=== PATIENT | male | born 1965 | race Caucasian/White ===

== ENCOUNTER 2017-11-25 10:40 | Emergency (ER) | payer SELFPAY ==
[~2017-11-25] VITALS: Ht 190.5 cm; Wt 86.2 kg
--- NOTE | 2017-11-25 12:09 | ED GENERAL ADULT ---
History of Present Illness General Chief Complaint: General Adult Stated Complaint: "VERTIGO? VOMITING, DIZZINESS X12HRS Source: patient, family Exam Limitations: no limitations Vital Signs & Intake/Output Vital Signs & Intake/Output Vital Signs Date Time Temp Pulse Resp B/P B/P Pulse O2 O2 Flow FiO2 Mean Ox Delivery Rate 11/25 1458 98.1 55 18 149/73 98 Room Air 11/25 1101 96.8 65 18 128/78 97 Room Air Allergies Coded Allergies: No Known Allergies (11/25/17) Triage Note: PT TO THE ER C/O NAUSEA AND DIZZYNESS. PT STATES THAT WHEN HE OPENS HIS EYE IS MAKES HIM SICKER. PT STATES THAT ONSET WAS YESTERDAY. PT STATES THAT ALL MORNING HE HAD DRY HEAVES. Triage Nurses Notes Reviewed? yes HPI: This is a 52-year-old male with history of minimal medical contacts but no known medical history, no toxic habits,, presenting to the emergency department with dizziness, vertigo, nausea and vomiting since yesterday afternoon. According to the patient, the symptoms started abruptly. There were not associated with any headache, neck pain, fever, chills, chest pain, shortness of breath. He had several episodes of nonbloody nonbilious vomiting and was unable to "keep anything down". He has never had an episode like this before. He denies any recent illness, travel, trauma, sick contacts. He is not sure if the symptoms are positional although he does describe some worsening of symptoms with sitting upright and opening his eyes. Upon arrival, he states that his symptoms have improved significantly since this morning. He denies any visual disturbance, discoordination, numbness, weakness. (Jean Lamb MD) Reconcile Medications Meclizine HCl 12.5 MG TABLET 1 TAB PO TID dizziness (Noah DAVE,Piotr Perry) Past History Travel History Traveled to [place] past 21 day No Medical History Any Pertinent Medical History? see below for history Surgical History Surgical History: none Psychosocial History What is your primary language Faroese Tobacco Use: Never used Family History Hx Contributory? No (Jean Lamb MD) Review of Systems Review of Systems Constitutional: Reports: no symptoms. EENTM: Reports: no symptoms. Respiratory: Reports: no symptoms. Cardiovascular: Reports: no symptoms. GI: Reports: no symptoms. Genitourinary: Reports: no symptoms. Musculoskeletal: Reports: no symptoms. Skin: Reports: no symptoms. Neurological/Psychological: Reports: see HPI. Hematologic/Endocrine: Reports: no symptoms. Immunologic/Allergic: Reports: no symptoms. (Jean Lamb MD) Physical Exam Physical Exam General Appearance: well developed/nourished, no apparent distress, comfortable Head: atraumatic, normal appearance Eyes: Bilateral: normal appearance, PERRL, EOMI. Ears, Nose, Throat: normal pharynx, normal ENT inspection Neck: normal inspection, supple, full range of motion Respiratory: normal breath sounds, no respiratory distress, lungs clear Cardiovascular: regular rate/rhythm, normal peripheral pulses Gastrointestinal: soft, non-tender Rectal: deferred Back: normal inspection, normal range of motion Extremities: normal inspection, normal capillary refill, normal range of motion, no edema Neurologic/Psych: no motor/sensory deficits, awake, alert, oriented x 3, normal gait, normal mood/affect, cupola patcher II-XII nml as tested Comments: Well-appearing middle-aged male, no acute distress. Patient has normal strength to bilateral upper and lower extremities. Intact cranial nerves. No discoordination, dysdiadochokinesis, negative Romberg, steady gait, no nystagmus /direction changing nystagmus, no skew on my exam, no [place]pike noted. Core Measures ACS in differential dx? No CVA/TIA Diagnosis: No Sepsis Present: No Sepsis Focused Exam Completed? No (Jean Lamb MD) Progress Differential Diagnoses I considered the following diagnoses in my evaluation of the patient: Clinically suspect vertigo in this patient, unclear etiology. Some concern for central vertigo given symptoms are not obviously related to position and patient has unclear risk profile, however patient is more consistent with peripheral vertigo at this time given abrupt onset, severe quality, abrupt cessation of symptoms. Most likely, BPPV. Will address possibility of metabolic derangement given multiple episodes of vomiting. Low suspicion for acute cardiopulmonary process or intra-abdominal pathology at this time given exam, history, and presentation. Plan of Care: Orders Procedure Date/time Status TROPONIN LEVEL 11/25 1143 Complete COMPREHENSIVE METABOLIC PANEL 11/25 1143 Complete CBC WITHOUT DIFFERENTIAL 11/25 1143 Complete EKG 11/25 1143 Active Laboratory Tests 11/25/17 1143: Anion Gap 9, Estimated GFR > 60, BUN/Creatinine Ratio 18.6, Glucose 108 H, Calcium 9.5, Total Bilirubin 1.0, AST 25, ALT 38, Alkaline Phosphatase 45, Troponin I < 0.01, Total Protein 6.4, Albumin 4.1, Globulin 2.3, Albumin/ Globulin Ratio 1.8, CBC w Diff NO MAN DIFF REQ, RBC 5.37, MCV 84.8, MCH 28.4, MCHC 33.4, RDW 14.5, MPV 8.0, Gran % 88.3 H, Lymphocytes % 6.9 L, Monocytes % 4.2, Eosinophils % 0.1, Basophils % 0.5, Absolute Granulocytes 6.8 H, Absolute Lymphocytes 0.5 L, Absolute Monocytes 0.3, Absolute Eosinophils 0, Absolute Basophils 0 Plan for basic labs, CTA head and neck, EKG, for symptom control, IV fluids, reassessment. Risk of posterior circulation stroke was discussed with patient at length. He agrees to follow-up with outpatient provider for reassessment and possible referral for MRI. At this time, given patient is asymptomatic and well- appearing, I believe the patient's desire to discharge home is reasonable. CTA is ordered to address possibility of severe vascular occlusion to the carotid or vertebral arteries. No significant vascular pathology identified on CTA. Possible inner ear bone dehiscence is noted, unclear significance at this time. Symptoms are much improved following p.o. Zofran and IV fluids. Patient able to tolerate good p.o. here. He is walking back and forth to the bathroom with no dizziness. His vertigo is almost completely resolved at this point. He will follow-up with a primary doctor this week for reassessment. Initial ED EKG: normal axis, normal intervals, normal p-waves, normal QRS complex, normal sinus rhythm, no ST T wave changes ([place]) Departure Departure Time of Disposition: 1538 Disposition: HOME OR SELF CARE Condition: Stable Clinical Impression Primary Impression: Vertigo Referrals: Everton LACKEY,Jose Armando Rainey (PCP/Family) Additional Instructions: Thank you for coming to [facility]. As we discussed, vertigo is most often caused by inner ear problems. There are some cases however which are caused by strokes. During your visit to this emergency department we did not address every possible cause of your vertigo, including possible stroke. I recommend that you follow-up with your primary doctor this week. In addition, it is important that you return to the emergency department if your symptoms get any worse or fail to improve over the next day or 2. Take the medication as I prescribed. Thank you, Dr. Lamb. Departure Forms: Customer Survey General Discharge Information Prescriptions: Current Visit Scripts Meclizine HCl 1 TAB PO TID #30 TAB (Jean Lamb MD) Resident Co-Sign Statement Statement: ED Attending supervision documentation- [] I saw and evaluated the patient. I have also reviewed all the pertinent lab results and diagnostic results. I agree with the findings and the plan of care as documented in the Resident's documentation. [X] I have reviewed the ED Record and agree with the Resident's documentation. [] Additions or exceptions (if any) to the Resident's note and plan are summarized below: [] (Noah DAVE,Piotr Perry) Critical Care Note Critical Care Note Critical Care Time: non-applicable (Jean Lamb MD)
[2017-11-25 12:33] LABS: ABSOLUTE BASOPHIL COUNT 0 /CUMM (0.0-0.2); ABSOLUTE EOSINOPHIL COUNT 0 /CUMM (0.0-0.7); ABSOLUTE GRANULOCYTE CT 6.8 /CUMM (1.4-6.5); ABSOLUTE LYMPH COUNT 0.5 /CUMM (1.2-3.4); ABSOLUTE MONOCYTE COUNT 0.3 /CUMM (0.10-0.60); BASOPHIL % 0.5 % (0.0-2.0); EOSINOPHIL % 0.1 % (0-5); HEMATOCRIT 45.6 % (42-52); MEAN CORPUSCULAR HGB 28.4 PG (27.0-31.0); MEAN CORPUSCULAR HGB CONC 33.4 G/DL (33.0-37.0); MEAN CORPUSCULAR VOLUME 84.8 FL (80.0-94.0); PLATELET COUNT 232 /CUMM (130-400); RBC DISTRIBUTION WIDTH 14.5 % (11.5-14.5); RED BLOOD CELL CT 5.37 /CUMM (4.70-6.10); WHITE BLOOD CELL COUNT 7.7 /CUMM (4.8-10.8)
[2017-11-25 13:14] LABS: GRANULOCYTE % 88.3 % (42.2-75.2)
--- NOTE | 2017-11-25 15:12 | CT SCAN REPORT ---
EXAMINATION: CT ANGIOGRAM NECK WITH CONTRAST CT ANGIOGRAM BRAIN WITH CONTRAST CLINICAL INFORMATION: Concern for posterior circulation pathology. Vertigo. COMPARISON: None available. TECHNIQUE: Test bolus sequences followed by intravenous administration 95 mL of Optiray 350. Helical imaging was performed in the axial plane from the thoracic inlet to the skull vertex. Delayed postcontrast imaging of the head was also performed. The data was processed at the ep technologist workstation for generation of MIP sequences. Angled MIPs and volume rendered reformatted images were also generated at an offline 3D workstation. Stenoses are assessed in accordance with NASCET criteria unless otherwise indicated. FINDINGS: BRAIN: There is no intracranial hemorrhage, hydrocephalus, extra-axial surface collection, midline shift, or other herniation pattern. Thomas to white matter differentiation is diffusely maintained without evidence of an evolved acute territorial infarct. The basilar cisterns are preserved. No significant soft tissue abnormality. No acute osseous abnormality. Retention cyst along the floor the left maxillary sinus. There is thin versus dehiscent bone overlying the left superior semicircular canal that can be correlated with a high-resolution temporal bone CT if there is any clinical concern for third window phenomenon/semicircular canal dehiscence to explain the patient's vertigo. CERVICAL SOFT TISSUES AND LUNG APICES: Unremarkable. NECK CTA: Left common carotid artery arises from the brachiocephalic artery, an anatomic variant. Proximal arch vessels are non-stenotic. Left vertebral artery is dominant. No significant ostial stenosis is visualized on either side. Both vertebral arteries are widely patent throughout their extracranial cervical course. Both common and internal carotid arteries are normal in course and caliber. BRAIN CTA: The right intradural vertebral artery ends as the PICA, an anatomic variant. No focal flow-limiting stenosis, discrete proximal large artery occlusion, or saccular intradural aneurysm is identified. Timing of the contrast bolus allows assessment of the major dural venous sinuses, which all opacify normally. IMPRESSION: - No acute intracranial findings. There is thin versus dehiscent bone overlying the left superior semicircular canal that can be correlated with a high-resolution temporal bone CT if there is any clinical concern for third window phenomenon/semicircular canal dehiscence to explain the patient's vertigo. - Unremarkable CTA of the head and neck. No acute arterial occlusions and no significant arterial stenoses within the head or neck. No evidence of arterial dissection.
[2017-11-25] MEDS ORDERED: MECLIZINE HCL12.5 M1 PO (15:42)
== END 2017-11-25 16:08 ==
LOC: ERH 10:40
PROVIDERS: Physician Assistant Medical
DX: R42 Dizziness and giddiness (principal)
CPT/HCPCS: 93005; 93010; J3101